=== PATIENT | female | born 1985 | race Two or more races ===

== ENCOUNTER 2020-09-12 19:36 | Inpatient (IN) | payer OTHER ==
[~2020-09-12] VITALS: Ht 149.9 cm; Wt 69.6 kg
--- NOTE | 2020-09-12 20:08 | NUR ---
PATIENT TRANSFERRED FROM URGENT CARE IN [place], HAS PIV. MARKETING SUPPORT MANAGER AWARE
--- NOTE | 2020-09-12 21:46 | NUR ---
PT RESTING IN BED, PT DENIED ANY CURRENT WANTS OR NEEDS AT THIS TIME. PT ON MONITOR WITH PT VSS.
[2020-09-12 22:11] LABS: BASOPHILS % (AUTO) 1 % (0-1); EOSINOPHILS % (AUTO) 1 % (1-7); LYMPHOCYTES % (AUTO) 24 % (22-44); MEAN CORPUSCULAR HEMOGLOBIN 31.6 pg (27.0-34.8); MEAN CORPUSCULAR HGB CONC 34.5 g/dL (32.4-35.8); MEAN PLATELET VOLUME 9.2 fL (7.4-10.4); MONOCYTES % (AUTO) 8 % (2-9); NEUTROPHILS % (AUTO) 67 % (42-75); PLATELET COUNT 279 x10^3/uL (130-400); RED BLOOD COUNT 4.86 x10^6/uL (3.82-5.3); RED CELL DISTRIBUTION WIDTH 13.7 % (9.6-15.2)
[2020-09-12 22:14] LABS: MD NO
[2020-09-12 22:22] LABS: ALBUMIN 3.9 g/dL (3.4-5.0); ANION GAP 5 mmol/L (5-15); CALCIUM 9.8 mg/dL (8.5-10.1); CHLORIDE 107 mmol/L (98-107); CREATININE 0.82 mg/dL (0.55-1.02)
[2020-09-12 22:30] LABS: ALANINE AMINOTRANSFERASE 1035 U/L (12-78); ALKALINE PHOSPHATASE 208 U/L (45-117); BILIRUBIN,TOTAL 1.3 mg/dL (0.2-1.0); TOTAL PROTEIN 7.8 g/dL (6.4-8.2)
[2020-09-13] MEDS ORDERED: SODIUM CHLORIDE FLUSH 10ML SYR IVF PRN
[2020-09-13 01:12] VITALS: BP 126/83
[2020-09-13 01:13] VITALS: BP 126/83
[2020-09-13] MEDS ORDERED: ONDANSETRON 2MG/ML, 2ML IVPush PRN (01:30)
[2020-09-13] MEDS ORDERED: GUAIFENESIN/DM 200-20MG, 10ML UDC PO PRN (01:30)
[2020-09-13] MEDS ORDERED: OXYcodone IR 5MG TABLET PO PRN (01:30)
[2020-09-13] MEDS ORDERED: METHOCARBAMOL 500 MG TABLET PO PRN (01:30)
[2020-09-13] MEDS ORDERED: DOCUSATE 100 MG CAPSULE PO PRN (01:30)
[2020-09-13] MEDS ORDERED: ZOLPIDEM 5MG TABLET PO PRN (01:30)
[2020-09-13] MEDS ORDERED: LABETALOL 5MG/ML, 20ML IVPush PRN (01:30)
[2020-09-13] MEDS: LACTATED RINGERS 1,000 ML IV SCH ×2 (02:14→15:14)
[2020-09-13] MEDS: morphine SULFATE 10 MG/ML, 1ML IVPush PRN (02:15)
[2020-09-13 06:59] VITALS: BP 110/74
[2020-09-13] MEDS: FAMOTIDINE 20 MG/2 ML IVPush SCH ×2 (09:15→21:00)
[2020-09-13] MEDS: IBUPROFEN 600 MG TABLET PO PRN ×2 (09:15→15:14)
[2020-09-13 12:55] VITALS: BP 114/76
[2020-09-13] MEDS ORDERED: BUPIVACAINE/PF 0.5% ONE (18:26)
[2020-09-13] MEDS ORDERED: EPINEPHRINE 1 MG/ML, 1ML ONE (18:26)
[2020-09-13 20:11] VITALS: BP 137/83
[2020-09-13] MEDS ORDERED: FENTANYL PF 250 MCG/5ML ONE (20:43)
[2020-09-13] MEDS ORDERED: MIDAZOLAM 1 MG/ML, 2ML ONE (20:43)
[2020-09-13] MEDS ORDERED: KETOROLAC 30 MG/1 ML ONE (20:46)
[2020-09-13] MEDS ORDERED: LABETALOL 5MG/ML, 20ML IV PRN (21:00)
[2020-09-13] MEDS ORDERED: FENTANYL PF 100 MCG/2ML IV PRN (21:00)
[2020-09-13] MEDS ORDERED: MEPERIDINE/PF 25MG/0.5ML IVPush PRN (21:00)
[2020-09-13] MEDS ORDERED: ACETAMINOPHEN 325 MG TABLET PO PRN (21:00)
[2020-09-13] MEDS ORDERED: HALOPERIDOL 5 MG/ML IV PRN (21:00)
[2020-09-13] MEDS ORDERED: PROMETHAZINE 25 MG/ML, 1ML IVPush PRN (21:00)
[2020-09-13] MEDS ORDERED: OXYcodone 5 MG/5 ML ORAL.SOL UDC PO PRN (21:00)
[2020-09-13] MEDS ORDERED: morphine SULFATE 10 MG/ML, 1ML IVPush PRN (21:00)
[2020-09-13] MEDS ORDERED: hydrALAzine 20 MG/ML, 1ML IV PRN (21:00)
[2020-09-13] MEDS ORDERED: HYDROmorphone 1 MG/ML, 1ML INJ IVPush PRN (21:00)
[2020-09-13] MEDS ORDERED: DEXAMETHASONE 4 MG/ML, 1ML ONE (21:42)
[2020-09-13] MEDS ORDERED: GLYCOPYRROLATE 0.2MG/1ML, 5ML ONE (21:42)
[2020-09-13] MEDS ORDERED: ROCURONIUM 10MG/ML,5ML ONE (21:42)
[2020-09-13] MEDS ORDERED: PROPOFOL 10 MG/ML, 20ML ONE (21:42)
[2020-09-13] MEDS ORDERED: NEOSTIGMINE 1 MG/ML, 10ML ONE (21:42)
[2020-09-13] MEDS ORDERED: ONDANSETRON 2MG/ML, 2ML ONE (21:42)
[2020-09-13] MEDS ORDERED: FENTANYL PF 100 MCG/2ML ONE (21:43)
[2020-09-13] MEDS ORDERED: THROMBIN 5,000 UNIT VIAL TP ONE (21:50)
[2020-09-13] MEDS ORDERED: MEPERIDINE/PF 25MG/ML,1ML ONE (22:34)
[2020-09-14] VITALS: BP 120/80
[2020-09-14] MEDS: morphine SULFATE 10 MG/ML, 1ML IVPush PRN ×2 (01:47→02:24)
[2020-09-14 03:57] VITALS: BP 121/77
[2020-09-14 05:13] LABS: BASOPHILS % (AUTO) 0 % (0-1); EOSINOPHILS % (AUTO) 0 % (1-7); LYMPHOCYTES % (AUTO) 5 % (22-44); MEAN CORPUSCULAR HEMOGLOBIN 31.1 pg (27.0-34.8); MEAN CORPUSCULAR HGB CONC 33.3 g/dL (32.4-35.8); MEAN PLATELET VOLUME 9.1 fL (7.4-10.4); MONOCYTES % (AUTO) 1 % (2-9); NEUTROPHILS % (AUTO) 94 % (42-75); PLATELET COUNT 237 x10^3/uL (130-400); RED BLOOD COUNT 4.52 x10^6/uL (3.82-5.3); RED CELL DISTRIBUTION WIDTH 13.8 % (9.6-15.2)
[2020-09-14 05:21] LABS: MD NO
[2020-09-14 05:22] LABS: ALANINE AMINOTRANSFERASE 708 U/L (12-78); ALBUMIN 3.7 g/dL (3.4-5.0); ANION GAP 10 mmol/L (5-15); CALCIUM 8.5 mg/dL (8.5-10.1); CHLORIDE 109 mmol/L (98-107); CREATININE 0.82 mg/dL (0.55-1.02)
[2020-09-14 05:24] LABS: ALKALINE PHOSPHATASE 155 U/L (45-117); BILIRUBIN,TOTAL 0.5 mg/dL (0.2-1.0); TOTAL PROTEIN 7.5 g/dL (6.4-8.2)
[2020-09-14] MEDS: LACTATED RINGERS 1,000 ML IV SCH (06:20)
[2020-09-14 06:50] VITALS: BP 110/73
[2020-09-14] MEDS: FAMOTIDINE 20 MG/2 ML IVPush SCH (08:29)
[2020-09-14] MEDS ORDERED: ACETAMINOPHEN 500 MG TABLET PO SCH (10:00)
[2020-09-14] MEDS ORDERED: ACET500T64 PO (10:44)
[2020-09-14] MEDS ORDERED: IBUP-1222 PO (10:44)
[2020-09-14] MEDS ORDERED: OXYC5TAB3 PO (10:44)
[2020-09-14] MEDS ORDERED: DOCU100C33 PO (10:44)
[2020-09-14] MEDS ORDERED: ONDA4TAB7 PO (10:44)
[2020-09-14] MEDS ORDERED: IBUPROFEN 600 MG TABLET PO SCH (12:00)
[2020-09-14 12:55] VITALS: BP 113/72
== END 2020-09-14 15:15 | disposition home or self-care (01) | DRG 419 ==
LOC: ED 22:25 → EDIP 09-13 01:01 → 4NW 09-13 01:03 → DCLOUNGE 09-14 15:05
PROVIDERS: ADMIT Internal Medicine; ATTEND Hospitalist
PROC: 0FT44ZZ Resection of Gallbladder, Percutaneous Endoscopic Approach (ICD-10-PCS; principal; 2020-09-13 21:00)
DX: K80.20 Calculus of gallbladder without cholecystitis without obstruction (principal); M54.9 Dorsalgia, unspecified; R79.89 Other specified abnormal findings of blood chemistry; Z20.828 Contact with and (suspected) exposure to other viral communicable diseases; Z83.3 Family history of diabetes mellitus
CPT/HCPCS: 36415; S0020; 74181; 76700; 80053; 83690; 84703; 85025; 87635; 93005; G0378; J0171; J1100; J1885; J2175; J2250; J2405; J2704; J2710; J3010; J2270; J7120